=== PATIENT | female | born 1955 | race Caucasian/White ===

== ENCOUNTER 2016-11-30 19:10 | Emergency (ER) | payer OTHER ==
[~2016-11-30 19:10] MED LIST: CORDARONE PO; HYDROCHLOROT12.5 MG PO; KLOR-CON 1010 MEQ PO; LOP25 PO; PRADAXA150 MG PO; PRIN5 PO; RYTHMOL150 MG PO; RYTHMOL225 MG PO; ULTRAM50 PO; ZESTORETIC1 TAB PO
== END 2016-11-30 20:23 | disposition home or self-care (01) ==
LOC: ER 19:10
DX: S70.01XA Contusion of right hip, initial encounter (principal); I48.2 Chronic atrial fibrillation; Z88.8 Allergy status to other drugs, medicaments and biological substances; Z79.899 Other long term (current) drug therapy; W19.XXXA Unspecified fall, initial encounter
CPT/HCPCS: 73502-RT; 73560-RT; 93005; 99284